=== PATIENT | male | born 1985 | race African-American/Black ===

== ENCOUNTER 2021-04-13 18:21 | Emergency (ER) | payer SELFPAY ==
[2021-04-13] MEDS ORDERED: CEPHALEXIN500 M1 PO (19:42)
== END 2021-04-13 20:00 | disposition home or self-care (01) ==
LOC: ED 18:21
DX: L73.9 Follicular disorder, unspecified (principal)

== ENCOUNTER 2021-04-22 20:09 | Emergency (ER) | payer SELFPAY ==
[~2021-04-22] VITALS: Ht 185.4 cm; Wt 81.6 kg
[~2021-04-22 20:09] MED LIST: CEPHALEXIN500 M1 PO
[2021-04-22 20:34] LABS: BILIRUBIN Negative (Negative); BLOOD Negative (Negative); CLARITY Clear (Clear); COLOR Yellow (Yellow); GLUCOSE Negative (Negative); KETONE Negative (Negative); LEUKO ESTERASE Negative (Negative); NITRITE Negative (Negative); PH 5.5 (4.5-8.0)
== END 2021-04-22 20:53 | disposition home or self-care (01) ==
LOC: ED 20:09
PROVIDERS: Emergency Medicine
DX: Z20.2 Contact with and (suspected) exposure to infections with a predominantly sexual mode of transmission (principal)

== ENCOUNTER 2021-05-22 09:34 | Emergency (ER) | payer SELFPAY ==
[~2021-05-22] VITALS: Ht 185.4 cm; Wt 81.6 kg
[2021-05-22] MEDS ORDERED: ANTIFUNGAL113 GM T (10:00)
== END 2021-05-22 10:00 | disposition home or self-care (01) ==
LOC: ED 09:34
DX: R21 Rash and other nonspecific skin eruption (principal)

== ENCOUNTER 2022-02-22 21:42 | Emergency (ER) | payer SELFPAY ==
[~2022-02-22 21:42] MED LIST changes: +ANTIFUNGAL113 GM T
== END 2022-02-22 23:25 | disposition left against medical advice (07) ==
LOC: ED 21:42
DX: Z53.21 Procedure and treatment not carried out due to patient leaving prior to being seen by health care provider (principal)